=== PATIENT | female | born 1955 | race Caucasian/White ===

== ENCOUNTER 2018-04-13 12:18 | Emergency (ER) | payer OTHER ==
[~2018-04-13] VITALS: Ht 157.5 cm; Wt 72.6 kg
[~2018-04-13 12:18] MED LIST: ADVAIR 250-501 EACH INH; ADVAIR 500-501 EACH INH; AGGRENOX 25 MG1 EACH PO; ASA81BEC PO; ASPIRIN325 PO; CLONAZEPAM 0.50.5 M1 PO; CLONAZEPAM 1 MG1 M1 PO; DARVOCET-N 1001 EAC1 PO; EFFIENT10 MG PO; FERREX 150150 MG PO; FLONASE 0.05%50 MCG NASAL; FLONASE 0.05%50 MCG NS; FOLIC ACID1 MG PO; HUMALOG INSULIN PUMP; HYDROCODON-ACE1 EAC5 PO; HYDROCODON-ACE1 EAC7 PO; HYDROCODON-ACE1 EAC8 PO; IMDUR 30 MG TAB30 M1 PO; KLOR-CON 10 ER10 MEQ PO; LEVOTHYROXIN0.112 M1 PO; LEVOTHYROXIN0.125 M2 PO; LEVOTHYROXINE 0.1 MG PO; LIPITOR 20 MG T20 M1 PO; LISINOPRIL5 MG PO; LOPRESSOR 12.12.5 MG PO; LOPRESSOR25 PO; MAGNESIUM OXID400 MG PO; MIRAPEX1 MG PO; MOBIC15 MG PO; MUPIROCIN22 GM NS; NEXIUM40 MG PO; PERCOCET 5-3251 EACH PO; PHISOHEX148 ML; PLAQUENIL200 MG PO; PLAVIX 75 MG TA75 M1 PO; PLAVIX 75 MG TA75 MG PO; POTASSIUM20; PREDNISONE PO; PRINIVIL10 MG PO; SIMVASTATIN40 MG PO; SINGULAIR 10 MG10 M1 PO; UNICOMPLEX M TA1 TA1 PO; VITAMIN D 5050000 I1 PO; VITAMIN D1000 UNI1 PO; VITAMIN D10000 UNIT PO; VITAMIN E400 UNIT; XOPENEX0.31 MG/3 INH; ZANAFLEX4 MG PO; ZANTAC 150MG T150 MG PO; ZOCOR 20 MG TAB20 M1 PO; ZOFRAN4 MG PO
[2018-04-13] MEDS ORDERED: CO Q-10100 MG PO (12:38)
[2018-04-13] MEDS ORDERED: NORCO 5-325 TA1 EACH PO (13:30)
== END 2018-04-13 13:54 | disposition home or self-care (01) ==
LOC: ER 12:18
DX: S93.601A Unspecified sprain of right foot, initial encounter (principal); J44.9 Chronic obstructive pulmonary disease, unspecified; I25.2 Old myocardial infarction; I10 Essential (primary) hypertension; K21.9 Gastro-esophageal reflux disease without esophagitis; E78.5 Hyperlipidemia, unspecified; E06.3 Autoimmune thyroiditis; E11.9 Type 2 diabetes mellitus without complications; Z86.73 Personal history of transient ischemic attack (TIA), and cerebral infarction without residual deficits; Z88.2 Allergy status to sulfonamides; Z88.8 Allergy status to other drugs, medicaments and biological substances; Z87.891 Personal history of nicotine dependence; W10.9XXA Fall (on) (from) unspecified stairs and steps, initial encounter; Y93.89 Activity, other specified; Y92.89 Other specified places as the place of occurrence of the external cause; Y99.8 Other external cause status

== ENCOUNTER 2018-07-31 13:06 | Inpatient (IN) | payer OTHER ==
[~2018-07-31] VITALS: Ht 157.5 cm; Wt 78.9 kg
[2018-07-31 13:06] VITALS: BP 156/54
[~2018-07-31 13:06] MED LIST changes: +CO Q-10100 MG PO; +NORCO 5-325 TA1 EACH PO
[2018-07-31 14:23] LABS: HEMOGLOBIN 12.4 gm/dL (12.0-15.0); MCH 31.8 pg (26.0-34.0); MCHC 34.5 g/dL (28.0-37.0); MCV 92.1 fL (80.0-100.0); RBC 3.91 mil/uL (4.20-5.00); RDW 13.4 % (10.5-14.5); WBC 6.7 thou/uL (4.0-11.0)
[2018-07-31 14:24] LABS: ABSOLUTE NEUTROPHILS 4.9 thou/uL (1.4-8.2); BASOPHILS 0.5 % (0.0-2.0); EOSINOPHILS 1.3 % (0.0-3.0); LYMPHOCYTES 15.7 % (24.0-44.0); MONOCYTES 9.8 % (1.0-8.0); PLATELET COUNT 143 thou/uL (150-400); POLYS 72.7 % (36.0-66.0)
[2018-07-31 14:34] LABS: ANION GAP 2 mmol/L (7-16); BUN 11 mg/dL (7-18); CALCIUM 9.1 mg/dL (8.5-10.1); CHLORIDE 103 mmol/L (98-107); CO2 31 mmol/L (21-32); CREATININE 0.9 mg/dL (0.6-1.0); GLUCOSE 129 mg/dL (74-106); POTASSIUM 3.7 mmol/L (3.5-5.1); SODIUM 136 mmol/L (136-145)
[2018-07-31 14:42] LABS: ALBUMIN 2.9 g/dL (3.4-5.0); SGOT 24 U/L (15-37); SGPT 20 U/L (30-65); TOTAL BILIRUBIN 0.5 mg/dL (<0.1-1.0); TOTAL PROTEIN 6.7 g/dL (6.4-8.2); TROPONIN-I <0.06 ng/mL (<0.06)
[2018-07-31] MEDS ORDERED: ASPIR 8181 MG PO (14:44)
[2018-07-31] MEDS ORDERED: GABAPENTIN 100100 MG PO (14:46)
[2018-07-31] MEDS ORDERED: LISINOPRIL5 MG PO (14:46)
[2018-07-31] MEDS ORDERED: RANEXA500 MG PO (14:47)
[2018-07-31] MEDS ORDERED: OMEPRAZOLE40 MG PO (14:47)
[2018-07-31 15:51] VITALS: BP 158/55
[2018-07-31 16:25] VITALS: BP 151/46
--- NOTE | 2018-07-31 18:01 | NUR ---
PT TO THE UNIT FROM THE ER. ORIEINTED TO ROOM AND BEDSPACE. ASSESSMENT CHARTED - ADMISSION CHARTED - ORDERS NOTED - PT BLOOD SUGAR PRIOR TO DINNER WAS 47 PER HER BLOOD GLUCOSE MACHINE - GIVEN 7=UP AND SHE ATE ICE CREAM UNABLE TO DRINK JUICE - ATE MEAL AND SUGAR IS NOW 170 AND PT TOOK 2 UNITS OF HUMALOG VIA PUMP. SPOKE WITH IN REGARDS TO PLACING HYPOGLYCEMIC PRORTOCOL IN COMPUTER. NO CO'S AT THE PRESENT TIME.
[2018-07-31 19:29] VITALS: BP 123/43
[2018-07-31 23:59] VITALS: BP 142/33
[2018-08-01 04:50] VITALS: BP 128/36
[2018-08-01 05:02] LABS: ALBUMIN 2.6 g/dL (3.4-5.0); ANION GAP 6 mmol/L (7-16); BUN 13 mg/dL (7-18); CALCIUM 8.9 mg/dL (8.5-10.1); CHLORIDE 103 mmol/L (98-107); CO2 31 mmol/L (21-32); CREATININE 0.9 mg/dL (0.6-1.0); GLUCOSE 119 mg/dL (74-106); PHOSPHORUS 4.1 mg/dL (2.5-4.9); POTASSIUM 3.5 mmol/L (3.5-5.1); SODIUM 140 mmol/L (136-145); TROPONIN-I <0.06 ng/mL (<0.06)
--- NOTE | 2018-08-01 05:32 | NUR ---
ASSUMED PT CARE AT 1900 WITH NO SIGN OF DISTRESS NOTED IN PT. PT IS ALERT AND ORIENTED. PT IS LAYING IN BED AND SHE IS STABLE. ASSESSMENT COMPLETED. VITAL SIGNS STABLE. SCHEDULED MED ADMINISTERED TO PT. PT TOLERATED MEDICATION INTAKE. PT WAS SEEN BY RADIOGRAPHER MAMMOGRAPHER. PT REQUESTED FOR SLEEPING MEDICATION. DENIES ANY FURTHER NEEDS AT THIS TIME.
[2018-08-01 07:50] VITALS: BP 171/40
[2018-08-01 11:15] VITALS: BP 134/39
[2018-08-01 16:00] VITALS: BP 146/43
--- NOTE | 2018-08-01 17:23 | NUR ---
ASSESSMENT CHARTED - MEDS PER MAR - PATIENT COVERIN OWN BLOOD SUGARS PER INSULIN PUMP - WILL ALLOW US TO TAKE BLOOD SUGARS SOME TIMES AND THEN HAS TO DI IT HERSELF AT OTHERS - DID REQUEST THAT SHE ALLOW US TO DO BLOOD SUGARS SHE STATD SHE WOULD THEN DID IT HERSELF ANYWAY. NO CO'S OF PAIN OR NAUSA. GENA DIET SALEEM FLUIDS. PT TO START ON PO LASIX IN THE AM - UP AD MEÑO IN ROOM. NO CO'S AT THE PRESENT TIME.
[2018-08-01 20:20] VITALS: BP 178/67
[2018-08-02 03:39] LABS: ANION GAP 4 mmol/L (7-16); BUN 16 mg/dL (7-18); CHLORIDE 102 mmol/L (98-107); CO2 34 mmol/L (21-32); GLUCOSE 155 mg/dL (74-106); POTASSIUM 3.2 mmol/L (3.5-5.1); SODIUM 140 mmol/L (136-145); TROPONIN-I <0.06 ng/mL (<0.06)
[2018-08-02 04:38] VITALS: BP 133/54
--- NOTE | 2018-08-02 05:55 | NUR ---
ASSUMED PT CARE AT 1900 WITH NO SIGN DISTRESS NOTED, PT IS LAYING IN BED. PT IS STABLE. DENIES ANY NEEDS. SCHEDULED MED ADMINISTERED TO PT AND PT TOLERATED PO INTAKE. NURSING POC CONTINUES, DENIES ANY FURTHER NEEDS AT THIS TIME.
[2018-08-02 07:50] VITALS: BP 135/40
--- NOTE | 2018-08-02 07:59 | HC ---
[facility] [place] [address] CONSULTATION Name: DOMINIK RIDDLE Room #: 206-P ADM IN M.R.#: [id number] Admission: 07/31/18 Attend Phys: Carolina Hurley Discharge: Date of : 59 Report #: [id number] THIS REPORT FOR: //name// CC: Carolina Crow Cardiology Consultation HISTORY OF PRESENT ILLNESS: The patient is a 62-year-old female who I just saw back, being lost to follow for a year or two, this week in the office. She has been having intermittent shortness of breath and has longstanding cardiac history, which has been stable including a prior bypass surgery in 2009. She became somewhat hypoxic and wheezy and has her O2 sats at home dropped to 90%. She came to the emergency room and subsequently was admitted, although possibly with some diastolic dysfunction. I do not have any recent echo. She was scheduled for echo, nuclear study and carotid in the office this week. She has been stable from a cardiac perspective. There was a bypass in 2009 with a RAMOS to an LAD and SVG to D1 and she was subsequently catheterized. There was drug-eluting stent to the chilkoot circ and that graft was occluded as was the graft to the PDA. These were filled via collaterals. The RAMOS was widely patent, had a moderate anastomotic stenosis. She has been compliant with medications. Does not really watch her salt and fluid intake. She lives with her sister. No current alcohol or tobacco. I do not have any recent imaging, but has had only mild cardiomyopathy by history. HOME MEDICATIONS: Baby aspirin, atorvastatin 20, Biotin, Klonopin, Plavix 75, CoQ10, Flonase, gabapentin, Plaquenil, insulin, Zestril, Ranexa, and vitamin D. PAST MEDICAL HISTORY: Positive for coronary artery disease, bypass and subsequent stent, some closure of the grafts, right carotid endarterectomy, history of CVA, COPD, diabetes, hypertension, hypercholesterolemia, Vazquez's thyroiditis by history, restless legs syndrome, DJD, carpal tunnel, carotid endarterectomy in 2011 and also had a right vertebral artery stent placed at . FAMILY HISTORY: Father has Alzheimer's. There is some atrial fibrillation or other premature disease. SOCIAL HISTORY: Prior smoker. She is recently . She lives with her sister. No alcohol use. Moderate caffeine. ALLERGIES: REGLAN, VERSED, SULFA, DARVOCET. LABORATORY WORK: Potassium 3.7, creatinine 0.9. Normal liver function tests. BNP 3452. Troponin negative. H and H 12 and 36, white count 6.7. IMAGING DATA: The x-ray reveals cardiomegaly with bilateral mid to lower lung [address] [address] CONSULTATION Name: DOMINIK RIDDLE Room #: 206-P [facility] IN M.R.#: [id number] Admission: 07/31/18 Attend Phys: Carolina Hurley Discharge: Date of : 59 Report #: [id number] opacities, possibly some evidence of pulmonary edema and old granulomatous disease (did receive Lasix in the ER). PHYSICAL EXAMINATION: GENERAL: She is alert. She is not even on oxygen at this point. She has diuresed. VITAL SIGNS: Pulse 60s, blood pressure 128/58. HEENT: Eyes reveal xanthelasmas. Pharynx is clear. NECK: Shows preserved upstrokes without JVD or bruits. LUNGS: Have few fine basilar crackles, otherwise clear. CARDIOVASCULAR: Regular rate and rhythm, S1, S2 distant. ABDOMEN: Obese, nontender. EXTREMITIES: Reveal trace of edema. Distal pulses diminished, but intact. NEUROLOGIC: Nonfocal. SKIN: Warm and dry without xanthoma or ulcer. MUSCULOSKELETAL: No gross joint deformity. ASSESSMENT: 1. Hypoxemia, possible multifactorial. No clear evidence for underlying infection. There was some evidence of volume overload. 2. Suspected diastolic dysfunction, has not had a history of significant systolic dysfunction, but we will repeat echocardiogram. 3. Hypertension. 4. Hypercholesterolemia. 5. Degenerative joint disease. 6. History of bypass surgery with stent placement afterwards, partial stent graft closure. 7. Peripheral vascular disease with a carotid endarterectomy and a right vertebral stent. RECOMMENDATIONS AND PLAN: Agree with the diuresis. We will follow with you. We will consider either inpatient workup or doing this as an outpatient, as she is markedly improved. We will discuss with primary in the morning. Also discussed some relative fluid and sodium restriction. We will continue 40 IV Lasix today and then tomorrow and then readdress in the a.m. <ELECTRONICALLY SIGNED> By: Dakota Lopez MD, FACC 08/02/18 0759 00 08 Dakota Lopez MD, FACC /nt
--- NOTE | 2018-08-02 08:26 | EKG ---
[place] [address] [facility] [place] [address] ELECTROCARDIOGRAM REPORT Name: DOMINIK RIDDLE Room #: 206-P ADM IN M.R.#: [id number] Admission: 07/31/18 Attend Phys: Carolina Hurley Discharge: Date of : 59 Report #: [id number] THIS REPORT FOR: //name// [facility] ED Test Date: 2018-07-31 Test Time: 13:42:22 Pat Name: DOMINIK RIDDLE Department: Room: 206 Gender: F Wood Last Maker: JAKE : 1955 Requested By: Tiffanie Spicer Order Number: [id number] MD: Anatoly Romero Measurements Intervals [place] Rate: 61 P: 81 [place]: 147 QRS: 94 QRSD: 105 T: 173 QT: 462 QTc: 466 Interpretive Statements Sinus rhythm Ventricular trigeminy Nonspecific ST and T wave abnormality Compared to ECG 04/19/2014 07:15:35 Ventricular premature complex(es) now present Electronically Signed On 08-02-2018 8:26:20 PRINTING WORKER SUPERVISOR by Anatoly Romero [email or web address] <ELECTRONICALLY SIGNED> By: Anatoly Romero MD, [facility] 08/02/18 0826 1342 134 Anatoly Romero MD, [facility] /EPI
--- NOTE | 2018-08-02 08:33 | EKG ---
[place] [address] [facility] [place] [address] ELECTROCARDIOGRAM REPORT Name: DOMINIK RIDDLE Room #: 206-P ADM IN M.R.#: [id number] Admission: 07/31/18 Attend Phys: Carolina Hurley Discharge: Date of : 59 Report #: [id number] THIS REPORT FOR: //name// [facility] Test Date: 2018-08-01 Test Time: 07:32:14 Pat Name: DOMINIK RIDDLE Department: Room: 206 P Gender: F Mis Director: АЛЕКСАНДР : 1955 Requested By: Dakota Lopez Order Number: [id number] MD: Anatoly Romero Measurements Intervals [place] Rate: 65 P: 84 [place]: 137 QRS: 94 QRSD: 105 T: QT: 553 QTc: 576 Interpretive Statements Sinus rhythm Ventricular trigeminy Probable left atrial enlargement Right axis deviation Nonspecific ST and T wave abnormality Prolonged QT interval Compared to ECG 04/19/2014 07:15:35 QT interval has lengthened Electronically Signed On 08-02-2018 8:32:59 STEP DOWN SPECIALIST by Anatoly Romero [email or web address] <ELECTRONICALLY SIGNED> By: Anatoly Romero MD, [facility] 08/02/18 0832 0732 Anatoly Romero MD, [facility] /EPI
[2018-08-02] MEDS ORDERED: SPIRONOLACTONE25 M1 PO (08:46)
[2018-08-02] MEDS ORDERED: DEMADEX 2020 MG/1 TA PO (08:46)
--- NOTE | 2018-08-02 11:56 | 2DMMODE ---
[facility] [address] [place] [address] 2 D/M-MODE ECHOCARDIOGRAM Name: DOMINIK RIDDLE Room #: 206-P ADM IN M.R.#: [id number] Admission: 07/31/18 Attend Phys: Carolina Cunha Discharge: Date of : 59 Date of Service: 08/02/18 1155 Report #: [id number] THIS REPORT FOR: //name// APPROVED REPORT Study performed: 08/02/2018 10:39:34 EXAM: Comprehensive 2D, Doppler, and color-flow Echocardiogram Patient Location: Bedside Room #: 206 Status: routine BSA: 1.80 HR: 63 bpm BP: 135/40 mmHg Rhythm: Trigeminy Other Information Study Quality: Adequate Risk Factors: Cardiac Risk Factors: HTN, Hyperlipidemia, DM Indications Congestive Heart Failure Dyspnea S/P CABGx5 (2009) 2D Dimensions IVSd: 9.53 (7-11mm) LVOT Diam: 18.00 (18-24mm) LVDd: 41.10 mm PWd: 9.88 (7-11mm) Ascending Ao: 24.49 (22-36mm) LVDs: 27.68 (25-40mm) Aortic Root: 22.91 mm LV Single Plane 4CH: 63.86 % LV Single Plane 2CH: 66.24 % Biplane EF: 64.3 % Volumes Left Atrial Volume (Systole) Single Plane 4CH: 36.69 mL Single Plane 2CH: 23.84 mL LA ESV Index: 19.00 mL/m2 Aortic Valve AoV Peak Abran.: 1.51 m/s AO Peak Gr.: 10.01 mmHg LVOT Max P.15 mmHg LVOT Max V: 0.89 m/s [facility] [place] [address] 2 D/M-MODE ECHOCARDIOGRAM Name: DOMINIK RIDDLE Juan Room #: 206-P [facility] IN [facility].#: [id number] Admission: 07/31/18 Attend Phys: Carolina Cunha Discharge: Date of : 59 Date of Service: 08/02/18 1155 Report #: [id number] Vmax: 1.44 cm2 Pulmonary Valve PV Peak Abran.: 0.95 m/s PV Peak Gr.: 3.62 mmHg Tricuspid Valve TR Peak Abran.: 2.39 m/s RAP Estimate: 7.00 mmHg TR Peak Gr.: 22.94 mmHg PA Pressure: 30.00 mmHg Left Ventricle The left ventricle is normal size. There is normal left ventricular wall thickness. Left ventricular systolic function is normal. The left ventricular ejection fraction is within the normal range. LVEF is 60-65%. This study is not technically sufficient to allow evaluation of the LV diastolic function due to trigeminy. Right Ventricle The right ventricle is normal size. The right ventricular systolic function is normal. Atria The left atrium size is normal. The right atrium size is normal. Aortic Valve The aortic valve is normal in structure. No aortic regurgitation is present. There is no aortic valvular stenosis. Mitral Valve There is mitral annular calcification. Mild mitral regurgitation. No evidence of mitral valve stenosis. Tricuspid Valve The tricuspid valve is normal in structure. Mild tricuspid regurgitation. Pulmonary artery pressure is 30 mmHg. Pulmonic Valve The pulmonary valve is normal in structure. There is no pulmonic valvular regurgitation. Great Vessels [facility] [address] [place] [address] 2 D/M-MODE ECHOCARDIOGRAM Name: DOMINIK RIDDLE Juan Room #: 206-P [facility] IN M.R.#: [id number] Admission: 07/31/18 Attend Phys: Carolina Cunha Discharge: Date of : 59 Date of Service: 08/02/18 1155 Report #: [id number] The aortic root is normal in size. IVC is normal in size and collapses >50% with inspiration. Pericardium There is no pericardial effusion. <Conclusion> The left ventricle is normal size. LVEF is 60-65%. This study is not technically sufficient to allow evaluation of the LV diastolic function due to trigeminy. The right ventricle is normal size. The left atrium size is normal. The aortic valve is normal in structure. There is mitral annular calcification. Mild mitral regurgitation. Mild tricuspid regurgitation. Pulmonary artery pressure is 30 mmHg. The aortic root is normal in size. There is no pericardial effusion. <ELECTRONICALLY SIGNED> By: Dakota oLpez MD, FACC 08/02/18 1155 1155 1155 Dakota Lopez MD, FACC /INF
[2018-08-02 12:05] VITALS: BP 163/59
[2018-08-02 12:17] VITALS: BP 135/40
--- NOTE | 2018-08-02 14:28 | NUR ---
ASSUMED CARE OF PT AT SHIFT CHANGE. ASSESSMENTS CHARTED. MEDS GIVEN PER AUG. PT AOX4, VSS, NO C/O PAIN. DENIES CHEST PAIN. NO SIGNS OF DISTRESS NOTED. O2 SATS WNL ON ROOM AIR, NO S/SX OF CARDIAC OR RESP DISTRESS NOTED. BLOOD SUGARS TAKEN, PT MANAGING INSULIN WITH OWN INSULIN PUMP. PT HAD ECHO TODAY- REFER TO RESULTS. DC ORDERS ACKNOWLEDGED AND IMPLEMENTED. PT LEFT UNIT WITH ALL BELONGINGS AT APPROX 1320. IV REMOVED, TELE REMOVED.
[2018-08-02 14:37] VITALS: BP 135/40
== END 2018-08-02 13:51 | disposition home or self-care (01) | DRG 291 ==
LOC: ER 13:06 → 2N 15:25 → EROBS 15:25 → 2N 16:14
PROVIDERS: Physician Assistant; ADMIT Hospitalist
DX: I11.0 Hypertensive heart disease with heart failure (principal); E43 Unspecified severe protein-calorie malnutrition; I50.31 Acute diastolic (congestive) heart failure; I69.354 Hemiplegia and hemiparesis following cerebral infarction affecting left non-dominant side; E78.5 Hyperlipidemia, unspecified; K21.9 Gastro-esophageal reflux disease without esophagitis; J44.9 Chronic obstructive pulmonary disease, unspecified; E78.00 Pure hypercholesterolemia, unspecified; G25.81 Restless legs syndrome; M19.90 Unspecified osteoarthritis, unspecified site; E10.51 Type 1 diabetes mellitus with diabetic peripheral angiopathy without gangrene; I25.10 Atherosclerotic heart disease of native coronary artery without angina pectoris; E87.6 Hypokalemia; I25.2 Old myocardial infarction; Z95.1 Presence of aortocoronary bypass graft; Z90.49 Acquired absence of other specified parts of digestive tract; Z87.891 Personal history of nicotine dependence; Z88.2 Allergy status to sulfonamides; Z88.8 Allergy status to other drugs, medicaments and biological substances; Z81.8 Family history of other mental and behavioral disorders; Z82.49 Family history of ischemic heart disease and other diseases of the circulatory system
CPT/HCPCS: 10081

== ENCOUNTER 2019-03-07 06:49 | Observation (INO) | payer OTHER ==
[~2019-03-07] VITALS: Ht 157.5 cm; Wt 75.7 kg
[~2019-03-07 06:49] MED LIST changes: +ASPIR 8181 MG PO; +DEMADEX 2020 MG/1 TA PO; +GABAPENTIN 100100 MG PO; +OMEPRAZOLE40 MG PO; +RANEXA500 MG PO; +SPIRONOLACTONE25 M1 PO
[2019-03-07 07:18] VITALS: BP 171/59
[2019-03-07 07:40] LABS: HEMOGLOBIN 12.6 gm/dL (12.0-15.0); MCH 31.5 pg (26.0-34.0); MCV 92.6 fL (80.0-100.0); RBC 3.99 mil/uL (4.20-5.00); WBC 7.7 thou/uL (4.0-11.0)
[2019-03-07 07:46] LABS: CALCIUM 9.1 mg/dL (8.5-10.1); CREATININE 1.1 mg/dL (0.6-1.0)
[2019-03-07 07:48] LABS: POTASSIUM 2.9 mmol/L (3.5-5.1)
[2019-03-07 07:54] LABS: APTT 26.7 Seconds (24.5-32.8)
--- NOTE | 2019-03-07 08:26 | EKG ---
[place] [address] [facility] [place] [address] ELECTROCARDIOGRAM REPORT Name: DOMINIK RIDDLE Room #: [facility]#: [id number] ������������������ Admission: 03/07/19 ������������������ Attend Phys: Dakota Lopez MD, Discharge: ������������������ Date of : 59 Report #: [id number] ����������������������������������������������������������������� [id number] THIS REPORT FOR: //name// [facility] Test Date: 2019-03-07 Test Time: 07:33:48 Pat Name: DOMINIK RIDDLE Department: Room: Gender: F Cinder Snapper: Jennifer CHAVEZ : 1955 Requested By: Dakota Lopez Order Number: [id number] MD: Anatoly Romero Measurements Intervals [place] Rate: 61 P: 78 ID: 159 QRS: 59 QRSD: 130 T: 115 QT: 506 QTc: 510 Interpretive Statements Sinus rhythm Incomplete right bundle branch block Inferior infarct, old Anteroseptal infarct, age indeterminate Prolonged QT interval Compared to ECG 08/01/2018 07:32:14 Ventricular premature complex(es) no longer present Electronically Signed On 03-07-2019 8:25:39 CDT by Anatoly Romero [email or web address] ��������������������������������������������� <ELECTRONICALLY SIGNED> ���������������������������������������� By: Anatoly Romero MD, [facility] ��������������������������������������������� 03/07/19 0825 0733 Anatoly Romero MD, [facility] /EPI
--- NOTE | 2019-03-07 17:19 | NUR ---
PT ADMITTED POST CARDIAC CATH AND LLE ANGIOGRAM. CARE ASSUMED APPROX 1715. PT ALERT AND ORIENTED X4. DENIES PAIN AND SOA. VSS. POST CATH NS INFUSION WAS NOT STARTED IN CV HOLDING. WILL START AT THIS TIME. PT HAS COMPLETED ALL OTHER POST CATH PROTOCOLS. UP WITH STEADY GAIT. LEFT GROIN C/D/I. NO DISTRESS NOTED.
--- NOTE | 2019-03-07 18:12 | NUR ---
POSSIBLE TELE INTERFERENCE NOTED FROM PT'S INSULIN PUMP. WILL MONITOR.
--- NOTE | 2019-03-07 18:46 | NUR ---
TYRA BUNN CV NURSE NOTIFIED OF TELEMETRY INTERFERENCE FROM PT'S INSULIN PUMP. NO NEW ORDERS.
[2019-03-07 19:59] VITALS: BP 146/49
[2019-03-08 00:50] VITALS: BP 142/40
--- NOTE | 2019-03-08 02:54 | NUR ---
ASSESSMENT DOCUMENTED.PT BEEN RESTING IN NO ACUTE DISTRESS.A/OX4.VSS.S ON MONITOR,S/P CARDIAC CATH W/RUNOFF.LEFT GROIN CDI,NO ACTIVE BLEEDING OR HEMATOMA NOTED.UP AD MEÑO TO BR,STEADY GAIT.PERIPHERAL PULSES PRESENT.PT TO DISCHARGE THIS AM
[2019-03-08 04:31] VITALS: BP 146/53
[2019-03-08 05:58] LABS: HEMATOCRIT 32.1 % (37.0-47.0); MCH 31.9 pg (26.0-34.0); MCHC 34.2 g/dL (28.0-37.0); MCV 93.3 fL (80.0-100.0); RBC 3.44 mil/uL (4.20-5.00); WBC 9.1 thou/uL (4.0-11.0)
[2019-03-08 06:33] LABS: ALBUMIN 2.5 g/dL (3.4-5.0); CALCIUM 8.3 mg/dL (8.5-10.1); POTASSIUM 3.9 mmol/L (3.5-5.1); TOTAL BILIRUBIN 0.3 mg/dL (<0.1-1.0); TOTAL PROTEIN 5.8 g/dL (6.4-8.2); TROPONIN-I 0.22 ng/mL (<0.06)
[2019-03-08 07:35] VITALS: BP 157/59
--- NOTE | 2019-03-08 08:19 | EKG ---
[address] [address] ELECTROCARDIOGRAM REPORT Name: DOMINIK RIDDLE Room #: 205-[facility].#: [id number] ������������������ Admission: 03/07/19 ������������������ Attend Phys: Dakota Lopez MD, Discharge: ������������������ Date of : 59 Report #: [id number] ����������������������������������������������������������������� [id number] THIS REPORT FOR: //name// [facility] Test Date: 2019-03-08 Test Time: 07:21:32 Pat Name: DOMINIK RIDDLE Department: Room: 205 Gender: F Stereotyper Helper: ANA LILIA : 1955 Requested By: Dakota Lopez Order Number: [id number] MD: Anatoly Romero Measurements Intervals [place] Rate: 78 P: 69 [place]: 152 QRS: 63 QRSD: 132 T: 116 QT: 411 QTc: 469 Interpretive Statements Sinus rhythm Right ventricular conduction delay Inferior infarct, old Compared to ECG 03/07/2019 07:33:48 septal Q waves are less prominent Electronically Signed On 03-08-2019 8:19:03 CDT by Anatoly Romero [email or web address] ��������������������������������������������� <ELECTRONICALLY SIGNED> ���������������������������������������� By: Anatoly Romero MD, [facility] ��������������������������������������������� 03/08/19818 0 0 Anatoly Romero MD, [facility] /EPI
[2019-03-08 10:19] VITALS: BP 157/59
--- NOTE | 2019-03-08 10:42 | NUR ---
ASSESSMENT CHARTED. PT ALERT AND ORIENTED. VSS. PT DENIED HAVING PAIN OR DISCOMFORT. LEFT GROIN INCISION C/D/I WITH BRUIZES. NO HEMATOMA NOTED. ORDERS GIVEN TO DISCHARGE PT TO HOME. DISCHARGE INSTRUCTIONS GIVEN TO PT. PT VERBERLIZED UNDERSTANDING.
--- NOTE | 2019-03-09 16:50 | CATHLAB ---
[facility] [address] [place] [address] INVASIVE PROCEDURE REPORT Name: DOMINIK RIDDLE Room #: 205-P [facility]#: [id number] ������������� Admission: 03/07/19 ������������� Attend Phys: Dakota Lopez, Discharge: ��� 03/08/19 ������������� ��� Date of : 59 Date of Service: 03/09/19 1650 �� Report #: [id number] �������� ��������������������������������������������[id number] THIS REPORT FOR: //name// APPROVED REPORT Study performed: 03/07/2019 07:22:18 Patient Details Patient Status: Out-Patient Room #: The patient is a 63 year-old female Event Personnel Dakota Lopez Confectionery Drops Machine Operator, Kwaku Monteiro RN, Nadya Shahid Sandifer, David Monitor, Evita Manzo RN clip on sunglasses assembler Performed Left Heart Cath Coronaries, Bypass Grafts [id number] LHCCORCABG PTCA Single Vessel CIRC [id number] PCISINGLE Indication Chest pain Procedure Narrative The Left Groin^ was infiltrated with 1% Lidocaine subcutaneous anesthesia. A PINNACLE 6FR Sheath #[id number] sheath was inserted into the LFA^. Coronary angiography was performed using coronary diagnostic catheters. The right coronary system was accessed and visualized with a 6FR 3DRC #[id number] catheter. The left coronary system was accessed and visualized with a 6FR JL 3.5 #[id number] catheter. The left ventricle was accessed and visualized with a PIGTAIL catheter. Left ventriculogram was performed in 30 degree projection. Closure device was deployed with a 6 Fr MYNX CONTROL 6F/7F #[id number]. The patient tolerated the procedure well and there were no complications associated with the procedure. There was no hematoma. Intraoperative Conscious Sedation Sedation start time: 8.53 Case end Time: 9.35 Fentanyl 100.0 mcg Fluoro Time: 7.59 minutes Dose: DAP 22428.00 cGycm2 1969 mGy Contrast Type and Amount: Visipaque 126 ml Hemodynamics [facility] [address] [place] [address] INVASIVE PROCEDURE REPORT Name: DOMINIK RIDDLE Juan Room #: 205-P [facility] IN [facility]#: [id number] ������������� Admission: 03/07/19 ������������� Attend Phys: Dakota Lopez, Discharge: ��� 03/08/19 ������������� ��� Date of : 59 Date of Service: 03/09/19 1650 �� Report #: [id number] �������� ��������������������������������������������[id number] The aortic pressure is 175/52 mmHg with a mean of 93 mmHg. The left ventricular pressure is 155/8 mmHg with a mean of mmHg. The left ventricular end diastolic pressure is 28 mmHg. PCI Technique Lesion Percutaneous coronary intervention was performed on the mid circumflex artery segment. A Luge Wire .014 x 182CM #[id number] Guide Catheter was used to engage the ostium. A 6FR LAUNCHER EBU 3.0 #[id number] Interventional Guidewire was used to cross the lesion. BALLOON DILATION A Balloon catheter TREK NC OTW 2.5 X 15 #[id number] was inserted and inflated up to 14.00atm for 36seconds. Additional Inflation: 22.00atm for 49seconds. Additional Inflation: 22.00atm for 32seconds. - PCI Technique Lesion 2 Percutaneous Coronary Intervention was performed on the Unspecified. Conclusion #1 successful PTCA of a circumflex OM high-grade in-stent restenosis with a 2.5 noncompliant balloon multiple inflations to 22-24 refugio yielding minimal residual and brisk flow into the distal OM. Collateral filling to the inferior wall #2 left main moderately disease giving rise to an LAD which is occluded and the circumflex which has multiple prior stents #3 RAMOS to LAD is intact with mild irregularities #4 and SVG to a diagonal is intact is diffusely diseased diagonal this had previously been a sequential graft to OM this is occluded. #5 quileute right coronary artery occluded #6 SVG to the PDA occluded #7 normal left ventricular size with inferior wall severely hypokinetic EF 45-50% Recommendations and plan: Continue aggressive risk factor modification. Continue dual antiplatelet therapy. No other indication for intervention at this time good result was obtained with dilatation of this circumflex artery which has extensive prior stenting ��������������������������������������������� <ELECTRONICALLY SIGNED> ���������������������������������������� By: Dakota Lopez MD, [facility] ��������������������������������������������� 03/09/191649 49 49 Dakota Lopez MD, FACC /INF
== END 2019-03-08 11:19 | disposition home or self-care (01) ==
LOC: CATH 06:49 → 2N 17:24 → ENTRNSPT 03-08 10:24 → EDTRNSPTSTS 03-08 10:27 → DELTRNSPT 03-08 10:45 → ENTRNSPT 03-08 11:11 → EDTRNSPTSTS 03-08 11:12 → 2N 03-08 11:19
PROVIDERS: ADMIT Internal Medicine Cardiovascular Disease
DX: I25.10 Atherosclerotic heart disease of native coronary artery without angina pectoris (principal); I70.202 Unspecified atherosclerosis of native arteries of extremities, left leg; I70.1 Atherosclerosis of renal artery; I10 Essential (primary) hypertension; E78.5 Hyperlipidemia, unspecified; I77.9 Disorder of arteries and arterioles, unspecified; E08.00 Diabetes mellitus due to underlying condition with hyperosmolarity without nonketotic hyperglycemic-hyperosmolar coma (NKHHC); J44.9 Chronic obstructive pulmonary disease, unspecified; Z87.891 Personal history of nicotine dependence; Z79.82 Long term (current) use of aspirin; Z79.4 Long term (current) use of insulin; Z79.899 Other long term (current) drug therapy

== ENCOUNTER → 2019-08-22 | Outpatient (CLI) | payer OTHER | LOC: SJCVCIMAG 08-16 14:40 | DX: I99.8 Other disorder of circulatory system (principal); M79.605 Pain in left leg; Z95.820 Peripheral vascular angioplasty status with implants and grafts ==

== ENCOUNTER → 2019-08-30 | Outpatient (CLI) | payer OTHER | LOC: SJCVC 09:55 | DX: I45.10 Unspecified right bundle-branch block (principal); R94.31 Abnormal electrocardiogram [ECG] [EKG]; I25.810 Atherosclerosis of coronary artery bypass graft(s) without angina pectoris; I10 Essential (primary) hypertension; I73.9 Peripheral vascular disease, unspecified; I25.5 Ischemic cardiomyopathy; J44.9 Chronic obstructive pulmonary disease, unspecified; E78.00 Pure hypercholesterolemia, unspecified; Z95.1 Presence of aortocoronary bypass graft; Z79.82 Long term (current) use of aspirin; Z79.899 Other long term (current) drug therapy; Z87.891 Personal history of nicotine dependence ==

== ENCOUNTER → 2019-12-07 | Outpatient (CLI) | payer OTHER | LOC: SJCVCIMAG 08:22 | PROVIDERS: ATTEND Internal Medicine Cardiovascular Disease | DX: I08.1 Rheumatic disorders of both mitral and tricuspid valves (principal); I45.10 Unspecified right bundle-branch block; I11.9 Hypertensive heart disease without heart failure; I25.5 Ischemic cardiomyopathy; I25.810 Atherosclerosis of coronary artery bypass graft(s) without angina pectoris; E11.9 Type 2 diabetes mellitus without complications; E78.5 Hyperlipidemia, unspecified; Z79.4 Long term (current) use of insulin; Z87.891 Personal history of nicotine dependence; Z79.82 Long term (current) use of aspirin; Z79.899 Other long term (current) drug therapy; Z95.1 Presence of aortocoronary bypass graft ==

== ENCOUNTER → 2020-03-08 | Outpatient (CLI) | payer OTHER | LOC: SJCVCIMAG 08:50 | PROVIDERS: ATTEND Internal Medicine Cardiovascular Disease | DX: I65.23 Occlusion and stenosis of bilateral carotid arteries (principal); I70.203 Unspecified atherosclerosis of native arteries of extremities, bilateral legs; R94.31 Abnormal electrocardiogram [ECG] [EKG]; I45.10 Unspecified right bundle-branch block; I25.10 Atherosclerotic heart disease of native coronary artery without angina pectoris; I10 Essential (primary) hypertension; E10.59 Type 1 diabetes mellitus with other circulatory complications; J44.9 Chronic obstructive pulmonary disease, unspecified; E78.00 Pure hypercholesterolemia, unspecified; I25.5 Ischemic cardiomyopathy; Z95.1 Presence of aortocoronary bypass graft; Z79.899 Other long term (current) drug therapy; Z87.891 Personal history of nicotine dependence; Z86.73 Personal history of transient ischemic attack (TIA), and cerebral infarction without residual deficits ==

== ENCOUNTER → 2020-10-30 | Outpatient (CLI) | payer OTHER | LOC: SJCVCIMAG 07:35 | PROVIDERS: ATTEND Internal Medicine Cardiovascular Disease | DX: I65.23 Occlusion and stenosis of bilateral carotid arteries (principal); I70.203 Unspecified atherosclerosis of native arteries of extremities, bilateral legs; R94.31 Abnormal electrocardiogram [ECG] [EKG]; I45.10 Unspecified right bundle-branch block; I25.10 Atherosclerotic heart disease of native coronary artery without angina pectoris; E10.51 Type 1 diabetes mellitus with diabetic peripheral angiopathy without gangrene; E10.59 Type 1 diabetes mellitus with other circulatory complications; I25.5 Ischemic cardiomyopathy; I10 Essential (primary) hypertension; E78.00 Pure hypercholesterolemia, unspecified; I77.9 Disorder of arteries and arterioles, unspecified; I42.9 Cardiomyopathy, unspecified; J44.9 Chronic obstructive pulmonary disease, unspecified; I63.9 Cerebral infarction, unspecified; I65.03 Occlusion and stenosis of bilateral vertebral arteries; Z95.828 Presence of other vascular implants and grafts; Z95.5 Presence of coronary angioplasty implant and graft; Z95.1 Presence of aortocoronary bypass graft; Z88.8 Allergy status to other drugs, medicaments and biological substances; Z79.82 Long term (current) use of aspirin; Z79.84 Long term (current) use of oral hypoglycemic drugs; Z79.899 Other long term (current) drug therapy; Z87.891 Personal history of nicotine dependence; Z82.49 Family history of ischemic heart disease and other diseases of the circulatory system ==

== ENCOUNTER → 2021-05-02 | Outpatient (CLI) | payer OTHER ==
[~2021-05-02] MED LIST changes: +ALENDRONATE SOD70 MG PO; +BIOTIN1000 MCG PO; +CALCIUM 500 +1 EAC5 PO
== END ==
LOC: SJCVC 07:42 → SJCVCIMAG 07:42
PROVIDERS: ATTEND Internal Medicine Cardiovascular Disease
DX: R94.31 Abnormal electrocardiogram [ECG] [EKG] (principal); I65.23 Occlusion and stenosis of bilateral carotid arteries; I70.203 Unspecified atherosclerosis of native arteries of extremities, bilateral legs; I70.8 Atherosclerosis of other arteries; I11.9 Hypertensive heart disease without heart failure; I25.10 Atherosclerotic heart disease of native coronary artery without angina pectoris; I25.5 Ischemic cardiomyopathy; I77.9 Disorder of arteries and arterioles, unspecified; E78.00 Pure hypercholesterolemia, unspecified; E10.59 Type 1 diabetes mellitus with other circulatory complications; J44.9 Chronic obstructive pulmonary disease, unspecified; R06.00 Dyspnea, unspecified; M79.605 Pain in left leg; Z95.1 Presence of aortocoronary bypass graft; Z82.49 Family history of ischemic heart disease and other diseases of the circulatory system; Z79.82 Long term (current) use of aspirin; Z79.4 Long term (current) use of insulin; Z79.899 Other long term (current) drug therapy; Z88.8 Allergy status to other drugs, medicaments and biological substances; Z88.2 Allergy status to sulfonamides; Z87.891 Personal history of nicotine dependence

== ENCOUNTER → 2021-05-06 | Outpatient (CLI) | payer OTHER ==
[~2021-05-06] VITALS: Ht 157.5 cm; Wt 63.5 kg
[2021-05-06 08:30] VITALS: BP 191/52
[2021-05-06 08:58] LABS: HEMATOCRIT 36.7 % (37.0-47.0); HEMOGLOBIN 12.1 gm/dL (12.0-15.0); MCH 30.2 pg (26.0-34.0); MCHC 32.9 g/dL (28.0-37.0); MCV 91.7 fL (80.0-100.0); RDW 14.6 % (10.5-14.5); WBC 7.5 thou/uL (4.0-11.0)
[2021-05-06 09:02] LABS: CREATININE 1.1 mg/dL (0.6-1.0); POTASSIUM 3.7 mmol/L (3.5-5.1)
--- NOTE | 2021-05-07 16:41 | CATHLAB ---
[facility] [place] [address] INVASIVE PROCEDURE REPORT Name: DOMINIK RIDDLE Room #: REG DEWEY AmorErnie#: [id number] Admission: 05/06/21 Attend Phys: German Baez MD Discharge: Date of : 59 Report #: [id number] THIS REPORT FOR: cc: Elier Crow Steven F. DO Mancuso, Gerald M. MD [facility] ~ APPROVED REPORT Study performed: 05/06/2021 12:53:09 Patient Details Patient Status: Out-Patient Room #: The patient is a 65 year-old female Event Personnel Dakota Lopez Metal Fabricator Welder, Mercedes Chen RN RN, Eri Hodges RTR ScrubMitchel Roberta Monitor, Alesha Yang RTR, GAS GENERATOR OPERATOR Monitor Procedures Performed Art Access - L femoral artery* Left Heart Cath Coronaries, Bypass Grafts [id number] CCORCA Hemostasis w/ Mynx Procedure Narrative A SHEATH BRITE-TIP 6F X 11CM ([id number]) sheath was inserted into the RFA 6X11^. Coronary angiography was performed using coronary diagnostic catheters. The right coronary system was accessed and visualized with a 3DRC catheter. The left coronary system was accessed and visualized with a JL3.5 catheter. The left ventricle was accessed and visualized with a STR PIGTAIL catheter. Left ventriculogram was performed in 30 degree projection. Closure device was deployed with a Fr MYNXGRIP 6/7F #[id number]. The patient tolerated the procedure well and there were no complications associated with the procedure. There was no hematoma. Intraoperative Conscious Sedation Sedation start time: 11:42 Case end Time: 14:30 Fentanyl 150 mcg Sedation, contrast, and fluoro are combined totals from a lower extremity runoff procedure and a left heart cath. Fluoro Time: 14.40 minutes Dose: DAP 77282.44 cGycm2 918 mGy [facility] [place] [address] INVASIVE PROCEDURE REPORT Name: VENKATESHDOMINIK L Room #: REG [facility]#: [id number] Admission: 05/06/21 Attend Phys: German Baez, Discharge: Date of : 59 Report #: [id number] Contrast Type and Amount: Visipaque 169 ml Hemodynamics The aortic pressure is 171/48 mmHg with a mean of 93 mmHg. The left ventricular pressure is 193/13 mmHg with a mean of mmHg. The left ventricular end diastolic pressure is 33 mmHg. PCI Technique Lesion Percutaneous coronary intervention was performed on the Mid sup femoral. Conclusion #1 Normal left ventricular r size with inferior basilar akinesis EF 45 to 50% range #2 left main moderately disease giving rise to LAD which is occluded and a circumflex OM. #3 LAD is occluded proximally #4 RAMOS to LAD is intact extensive retrograde filling of the LAD and septal system and some filling to the PDA. #5 SVG to diagonal is intact with mild irregularities and also retrograde filling of the septal system #6 the [place] right coronary artery and the graft to the PDA are occluded. #7 circumflex OM multiple stents multiple areas of mom 70 to 80% eccentric lesions filling a OM branch distally. Would continue to treat this aggressively with medications. Reintervention in this multiple areas of stents does not look to be favorable. Recommendations and plan: Continue aggressive risk factor modification. Will have close follow-up. This does not show significant progression of disease from prior catheterization. <ELECTRONICALLY SIGNED> By: Dakota Lopez MD, FACC 05/07/21 1640 [id number] [id number] Dakota Lopez MD, FACC /INF
== END | disposition home or self-care (01) ==
LOC: CATH 07:48
PROVIDERS: ATTEND Nuclear Medicine Nuclear Cardiology
DX: I25.10 Atherosclerotic heart disease of native coronary artery without angina pectoris (principal); I70.211 Atherosclerosis of native arteries of extremities with intermittent claudication, right leg; I70.1 Atherosclerosis of renal artery; I10 Essential (primary) hypertension; E11.9 Type 2 diabetes mellitus without complications; J44.9 Chronic obstructive pulmonary disease, unspecified; E78.00 Pure hypercholesterolemia, unspecified; I42.9 Cardiomyopathy, unspecified; I25.2 Old myocardial infarction; Z98.890 Other specified postprocedural states; Z79.899 Other long term (current) drug therapy; Z79.4 Long term (current) use of insulin; Z95.1 Presence of aortocoronary bypass graft; Z87.891 Personal history of nicotine dependence

== ENCOUNTER → 2021-08-07 | Outpatient (CLI) | payer OTHER | LOC: SJCVCIMAG 07:22 | PROVIDERS: ATTEND Nuclear Medicine Nuclear Cardiology | DX: I65.21 Occlusion and stenosis of right carotid artery (principal); I73.9 Peripheral vascular disease, unspecified; I77.9 Disorder of arteries and arterioles, unspecified; I25.10 Atherosclerotic heart disease of native coronary artery without angina pectoris; I25.5 Ischemic cardiomyopathy; I10 Essential (primary) hypertension; E10.59 Type 1 diabetes mellitus with other circulatory complications; J44.9 Chronic obstructive pulmonary disease, unspecified; E78.00 Pure hypercholesterolemia, unspecified; Z95.1 Presence of aortocoronary bypass graft; Z82.49 Family history of ischemic heart disease and other diseases of the circulatory system; F17.210 Nicotine dependence, cigarettes, uncomplicated; Z79.82 Long term (current) use of aspirin; Z79.899 Other long term (current) drug therapy; Z88.8 Allergy status to other drugs, medicaments and biological substances ==